=== PATIENT | female | born 2000 | race Caucasian/White ===

== ENCOUNTER 2024-12-25 08:33 | Outpatient (OUT) | payer OTHER, SELFPAY ==
[2024-12-25 09:11] LABS: Basophils Percent Auto 0.5 % (0.2-2.0); Eosinophils Absolute Auto 0.1 10^3/uL (0.0-0.7); Eosinophils Percent Auto 0.8 % (0.9-7.0); Hematocrit 35.3 % (36.0-48.0); Hemoglobin 11.4 g/dL (12.0-16.0); Immature Granulocytes Abs Auto 0.03 10^3/uL (0.00-0.03); Immature Granulocytes Pct Auto 0.4 % (0.0-0.5); Lymphocytes Absolute Auto 1.6 10^3/uL (1.2-3.8); Lymphocytes Percent Auto 21.5 % (20.5-60.0); Mean Corpuscular HGB Conc 32.3 g/dL (29.9-35.2); Mean Corpuscular Hemoglobin 27.4 pg (26.7-34.0); Mean Corpuscular Volume 84.9 fL (81.0-99.0); Mean Platelet Volume 9.8 fL (9.5-13.5); Monocytes Absolute Auto 0.6 10^3/uL (0.3-0.8); Monocytes Percent Auto 8.1 % (1.7-12.0); Neutrophils Absolute Auto 5.2 10^3/uL (1.4-6.5); Neutrophils Percent Auto 68.7 % (43.0-75.0); Platelet Count 352 10^3/uL (150-450); Red Blood Count 4.16 10^6/uL (4.20-5.40); Red Cell Distribution Width 14.2 % (11.0-15.0); White Blood Count 7.6 10^3/uL (4.0-11.0)
[2024-12-25 09:43] LABS: Alanine Aminotransferase 10 U/L (14-59); Albumin Level 3.6 g/dL (3.4-5.0); Alkaline Phosphatase 76 U/L (46-116); Anion Gap 13.4; Aspartate Amino Transferase 14 U/L (15-37); BUN Creatinine Ratio 15.4; Bilirubin Total 0.2 mg/dL (0.2-1.0); Calcium 8.6 mg/dL (8.5-10.1); Carbon Dioxide 24.1 mmol/L (21.0-32.0); Chloride 110 mmol/L (98-107); Estimated GFR (African America >60 (>=60 mL/min/1.73m^2); Estimated GFR (Non-African Ame >60 (>=60 mL/min/1.73m^2); Globulin 3.6 g/dL; Glucose 71 mg/dL (74-106); Potassium 3.5 mmol/L (3.5-5.1); Sodium 144 mmol/L (136-145); Total Protein 7.2 g/dL (6.4-8.2)
== END 2024-12-25 08:34 | disposition home or self-care (01) ==
LOC: LAB 08:40
PROVIDERS: PCP Family Medicine
DX: G40.409 Other generalized epilepsy and epileptic syndromes, not intractable, without status epilepticus (principal)
CPT/HCPCS: 36415; 80053; 85025

== ENCOUNTER 2025-09-05 21:01 | Outpatient (REF) | payer OTHER, SELFPAY ==
--- OUTSIDE RECORDS SUMMARY | 2024-03-09 09:00 | XMS_ITS ---
Author Organization [facility] Servic es Address [address] [place] [address] Care Team Providers Care Primary Special Education Teacher Name Role Phone Gilberto Magallon Primary Care Provider [phone] Enma Owen [phone] REASON FOR VISIT est care Encounters Encounter Location Date Provider Diagnosis [address] [place] [address] 03/09/2024 Enma Owen Plan Of Treatment No Information Progress Notes * TANJA RUDDKERAAOB: 1 (25 yo F)Acc No.[id number]:03/09/2024 Progress Notes Patient: PATRICA NOLAN :?Enma Jessica CNPDOB:2000???Age:24 Y ???Sex:FemaleDate:03/09/2024hone:[phone]:[address] [facility]Pcp:Gilberto Magallon Subjective: * Chief Complaints: * E care Billing Information: * Procedure Codes: * Electronic signature of MARC Guerrero on 09/05/2025 at 09:08 PM ESTSign off status: Pending * Provider: Juan Carlos Jessica CNP Date: 0 03/09/2024 Generated for Printing/Faxing/eTransmitting on:?09/05/2025 09:08 PM EST
--- OUTSIDE RECORDS SUMMARY | 2024-03-13 11:00 | XMS_ITS ---
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 Name Role Phone Gilberto Magallon Primary Care Provider [phone] Enma Owen [phone] REASON FOR VISIT EST CARE Encounters Encounter Location Date Provider Diagnosis [address] [place] [address] 03/13/2024 Enma Owen Plan Of Treatment No Information Progress Notes * TANJA RUDDKEARAOB: 1 (25 yo F)Acc No.[id number]:03/13/2024 Progress Notes Patient: PATRICA NOLAN :?Enma Jessica CNPDOB:2000???Age:24 Y ???Sex:FemaleDate:03/13/2024hone:[phone]:[address] [facility]Pcp:Gilberto Magallon Subjective: * Chief Complaints: * E CARE Billing Information: * Procedure Codes: * Electronic signature of MARC Guerrero on 09/05/2025 at 09:08 PM ESTSign off status: Pending * Provider: Juan Carlos Jessica CNP Date: 0 03/13/2024 Generated for Printing/Faxing/eTransmitting on:?09/05/2025 09:08 PM EST
--- OUTSIDE RECORDS SUMMARY | 2025-09-05 10:00 | XMS_ITS | Encounter Summary ---
Author Organization [facility] Address [address] [place] [address] Care Team Providers Care Riveter Pneumatic Name Role Phone Unavailable Primary Care Provider Unavailabl e Reason for Visit * ReasonCommentsWell Women Visit Encounter Details DateTypeDepartmentCare Team (Latest Contact Info)Hwbpevdyerh43/10/2025 10:00 AM ESTProcedure Visit [facility] [place] [facility] [address] [address] Dawna Bullard NP [address] [place] [address] Well woman exam with routine gynecological exam; Encounter for initial prescription of contraceptive pills Social History Tobacco UseTypesPacks/DayYears UsedDateSmoking Tobacco: Never Assessed CommentsNoSex and Gender InformationValueDate RecordedSex Assigned at BirthNot on fileLegal OuuEvypfh50/15/2023 7:14 PM EDTGender IdentityNot on fileSexual OrientationNot on filedocumented as of this encounter Last Filed Vital Signs Vital SignReadingTime TakenCommentsBlood Nmurlncz657/6412 10:15 AM EST Pulse--Temperature--Respiratory Rate--Oxygen Saturation--Inhaled Oxygen Concentration--Bepqxo48.7 kg (164 lb 12 oz)09/05/2025 10:15 AM ESTHeight--Body Mass Index25.809 1:11 PM EDTdocumented in this encounter Progress Notes * Dawna Bullard NP - 09/05/2025 10:00 AM EST Reason for Appointment: Patient ID: Mikaela Mendoza is a 25 y.o. female who presents for Well Women Visit Patient presents today for Annual Exam. MEDICATIONS Current Outpatient Medications Medication Instructions Briviact 100 mg, 2 times daily ethosuximide (ZARONTIN) 500 mg, 2 times daily folic acid (FOLVITE) 1,000 mcg, 2 times daily norethindrone (MICRONOR) 0.35 mg, Oral, Daily, Take 1 tablet by mouth daily topiramate (TOPAMAX) 200 mg, 2 times daily Trokendi XR 100 mg, Daily ALLERGIES No Known Allergies PROBLEMS Active Ambulatory Problems Diagnosis Date Noted No Active Ambulatory Problems Resolved Ambulatory Problems Diagnosis Date Noted No Resolved Ambulatory Problems Past Medical History: Diagnosis Date Epilepsy (HCC) HISTORY PAST MEDICAL HISTORY SOCIAL HISTORY Past Medical History: Diagnosis Date Epilepsy (HCC) Social History Tobacco Use Smoking status: Not on file Smokeless tobacco: Not on file Substance Use Topics Alcohol use: Not on file Drug use: Not on file FAMILY HISTORY No family history on file. SURGICAL HISTORY History reviewed. No pertinent surgical history. REVIEW OF SYSTEMS Review of Systems: Review of Systems Constitutional: Negative. HENT: Negative. Eyes: Negative. Respiratory: Negative. Cardiovascular: Negative. Gastrointestinal: Negative. Genitourinary: Negative. Musculoskeletal: Negative. Skin: Negative. Neurological: Negative. All other systems reviewed and are negative. Hematological: Negative. Endocrine: Negative. Allergic/Immunologic: Negative. OBJECTIVE Objective: Physical Exam Constitutional: Appearance: Normal appearance. She is well-developed. Genitourinary: Vulva normal. No vaginal prolapse present. No vaginal atrophy present. Breasts: Breasts are soft. Right: Normal. Left: Normal. Cardiovascular: Rate and Rhythm: Normal rate and regular rhythm. Pulmonary: Effort: Pulmonary effort is normal. Breath sounds: Normal breath sounds. Abdominal: General: Bowel sounds are normal. There is no distension. Palpations: Abdomen is soft. Tenderness: There is no abdominal tenderness. There is no guarding or rebound. Musculoskeletal: General: No swelling. Normal range of motion. Right lower leg: No edema. Left lower leg: No edema. Neurological: Mental Status: She is alert and oriented to person, place, and time. Skin: General: Skin is warm and dry. Psychiatric: Mood and Affect: Mood normal. Behavior: Behavior normal. Vitals and nursing note reviewed. Exam conducted with a iron miner present. Vitals: Estimated body mass index is 25.8 kg/m?? as calculated from the following: Height as of 25: 5' 7 . Weight as of this encounter: 164 lb 12 oz. BP: 110/64 No LMP recorded. (Menstrual status: Oral Contraception). Assessment/Plan ICD-10-CM 1. Well woman exam with routine gynecological exam Z01.419 Assessment/Plan Annual Exam: Patient presents today for an annual exam. Patient states she is doing well and has no complaints. Pap was obtained without difficulty. No orders of the defined types were placed in this encounter. Follow Up: Patient is to return in one year for annual unless needed otherwise. Documented by Dawna Bullard NP on behalf of: Dawna Bullard NP documented in this encounter Plan of Treatment DateTypeDepartmentCare Team (Latest Contact Info)Ntjrvjhtnhd50/30/2026 10:00 AM ESTProcedure Visit [facility] [address] [place] [address] Dawna Bullard NP [address] [place] [address] NameTypePriorityAssociated DiagnosesOrder SchedulePap SmearPathology and CytologyRoutine Well woman exam with routine gynecological exam Ordered: 09/05/2025documented as of this encounter Visit Diagnoses Diagnosis Well woman exam with routine gynecological exam Routine gynecological examination Encounter for initial prescription of contraceptive pills documented in this encounter
--- OUTSIDE RECORDS SUMMARY | 2025-09-05 21:06 | XMS_ITS | CCD ---
Author Organization [facility] Care Team Providers Care Distribution Technician Name Role Phone HOUSE, DR HENDRICKS Primary Care Unavailable HAY, DR PENN Admitting Unavailable HAY, DR PENN Attending Unavailable HAY, DR PENN Consulting Unavailable MISC, DR VARGAS Admitting Unavailable MISC, DR VARGAS Attending Unavailable HOUSE, DR HENDRICKS Primary Care Unavailable MISC, DR VARGAS Consulting Unavailable Destiney, Annabel Unavailable Ernesto Gordon Attending Unavailable RENACS, GEORGES LE Referring Unavailable RENACS, GEORGES LE Attending Unavailable RENACS, GEORGES LE Referring Unavailable OMERO AMAYA Attending Unavailable SELF, SELF Referring Unavailable HOUSE, RUTHIE Primary Care Unavailable HOUSE, RUTHIE Primary Care Unavailable HOUSE, RUTHIE Referring Unavailable OMERO AMAYA A Attending Unavailable HOUSE, RUTHIE Primary Care Unavailable SANTIAOG AMAYAIL A Attending Unavailable SELF, SELF Referring Unavailable Serge STATION INSTALLATION SUPERVISOR, Rajwinder Godoy Unavailable [phone] DAWNA BULLARD Attending Unavailable Medications Current Medications MedicationDrug Class(es)DatesSig (Normalized)Sig (Original)brivaracetam 100 mg oral tablet (3 sources)take 1 tablet by mouth in the morningBriviact 100 MG tablet tablet Take 100 mg by mouth in the morning and 100 mg before bedtime. ActiveBriviact Activeethosuximide 250 mg oral capsule (3 sources)Anti-epileptic Agenttake 2 capsules by mouth in the morning ethosuximide (Zarontin) 250 MG capsule Take 500 mg by mouth in the morning and 500 mg before bedtime. ActiveZarontin Activefluticasone propionate 0.05 mg/actuat metered dose nasal spray (1 source)CorticosteroidStart: 64-21-4268rywg 2 spray(s) nasal route once daily Fluticasone Propionate 50 MCG/ACT 2 sprays Nasally Once a day for 14 day(s) Jun, Activefolic acid 1 mg oral tablet (3 sources)folic acid (Folvite) 1 MG tablet Take 1,000 mcg by mouth in the morning and 1,000 mcg before bedtime. ActiveFolic Acid Activenorethindrone 0.35 mg oral tablet (2 sources)Start: 06-06-2025 End: 36-17-9852cuzg 1 tablet by mouth once daily, then take 1 tablet by mouth once dailynorethindrone (Micronor) 0.35 MG tablet Indications: Encounter for initial prescription of contraceptive pills Take 1 tablet (0.35 mg) by mouth Daily for 28 days Take 1 tablet by mouth daily 28 tablet 11 06/06/2025 07/04/2025 Activetopiramate 200 mg oral tablet (5 sources)Start: 96-16-5278wysc 1 tablet by mouth in the morningtopiramate (Topamax) 200 MG tablet Take 200 mg by mouth in the morning and 200 mg before bedtime. 08/11/2024 Activetake 1 capsule by mouth once dailyTrokendi XR 100 MG capsule sustained-release 24 hr Take 100 mg by mouth Daily ActiveTopamax Active Problems Active Problems Problem ClassificationProblemDateDocumented DateEpisodic/ChronicContraceptive and procreative management (2 sources)Patient encounter status; Translations: [Encounter for initial prescription of contraceptive pills]07-52-7280EvisajyfEuvnjpdx; convulsions (7 sources)Epilepsy, unspecified, not intractable, without status epilepticus; Translations: [Other generalized epilepsy and epileptic syndromes, not intractable, without status epilepticus]Onset: 26-16-8697ZokxrkqHtfztbfy; convulsions (1 source)Unspecified convulsions; Translations: [Unspecified convulsions (HCC)] Onset: 83-15-2470AdpudeuuFosywdhf; including migraine (4 sources)Headache; including migraine; Translations: [HEADACHE UNSPECIFIED] Onset: 68-47-0895Nmakh aftercare (2 sources)Other half-way (current) drug therapy; Translations: [OTH [facility] CURRENT DRUG THERAPY]Onset: 68-87-2922IaaaprboLtuff nervous system disorders (1 source)Tremor, unspecified; Translations: [Tremor, unspecified]Onset: 81-06-8070PpzpeayoCajrs upper respiratory infections (2 sources)Acute upper respiratory infection, unspecified; Translations: [Acute sinusitis, unspecified]Onset: 37-52-9261SaxjerpsQrnpmzksx-related disorders (1 source)Nicotine dependence, other tobacco product, uncomplicated; Translations: [Nicotine dependence, other tobacco product, uncomplicated]Onset: 13-20-9857WcjrgybUgyuvfojttsy (2 sources)COUGH, UNSPECIFIED; Translations: [COUGH, UNSPECIFIED]Onset: 22-06-1790Hutbfukbljci (1 source)Seizure-prior Hx OfOnset: 36-96-1012Qdfcdsklgvos (1 source)siezureOnset: 02-08-2024 Past or Other Problems Problem ClassificationProblemDateDocumented DateEpisodic/ChronicUnclassified (1 source)COUGH, UNSPECIFIED; Translations: [COUGH, UNSPECIFIED]Onset: 12-23-2021 Results Test NameValueInterpretationReference RangeFacilityHCG ( test) Ql (U)on 40-45-4747Tltypdtgvsygbr and review of laboratory resultsNormalSaint [facility]ius Hospital Preg Test, UrNegativeNegativeNOMineral Area Regional Medical CenterNOAZ HealthcareBASIC METABOLIC PANEL on 91-05-1245Tvcnz gap [Moles/Vol]9 mmol/LNormal7-16[facility] Comment on above:Order Comment: KDIGO 2012 GFR CategoriesStage\X09\Description\X09\X09\X09\X09\eGFR (mL/min/1.73m2 )G1\X09\Normal or high\X09\X09\X09\X09\>=90G2\X09\Mildly decreased\X09\X09\X09\60-89G3a\X09\Mildly to moderately decreased\X09\45- 59G3b\X09\Moderately to severely decreased\X09\30-44G4\X09\Severely decreased\X09\X09\X09\15-29G5\X09\Kidney Failure\X09\X09\X09\X09\<15Release to patient->ImmediatePerformed By: #### LAB15, [id number] ####[facility] [place] [address] USACalcium [Mass/Vol]9.2 mg/dLNormal8.6-10.2KOhioHealth Grant Medical Center on above:Order Comment: KDIGO 2012 GFR CategoriesStage\X09\Description\X09\X09\X09\X09\eGFR (mL/min/1.73m2 )G1\X09\Normal or high\X09\X09\X09\X09\>=90G2\X09\Mildly decreased\X09\X09\X09\60-89G3a\X09\Mildly to moderately decreased\X09\45- 59G3b\X09\Moderately to severely decreased\X09\30-44G4\X09\Severely decreased\X09\X09\X09\15-29G5\X09\Kidney Failure\X09\X09\X09\X09\<15Release to patient->ImmediatePerformed By: #### LAB15, [id number] ####[facility] [place] [id number] USAChloride [Moles/Vol]112 mmol/AKxstkakk22-646Lakbpoiby Health NetworkComment on above:Order Comment: KDIGO 2012 GFR CategoriesStage\X09\Description\X09\X09\X09\X09\eGFR (mL/min/1.73m2)G1\X09\Normal or high\X09\X09\X09\X09\>=90G2\X09\Mildly decreased\X09\X09\X09\60-89G3a\X09\Mildly to moderately decreased\X09\45- 59G3b\X09\Moderately to severely decreased\X09\30-44G4\X09\Severely decreased\X09\X09\X09\15-29G5\X09\Kidney Failure\X09\X09\X09\X09\<15Release to patient->ImmediatePerformed By: #### LAB15, [id number] ####[facility] [place] [address] USACO2 [Moles/Vol]19 mmol/XQgbchfqi22-61DlazcsfxbPaulding County HospitalComment on above:Order Comment: KDIGO 2012 GFR CategoriesStage\X09\Description\X09\X09\X09\X09\eGFR (mL/min/1.73m2 )G1\X09\Normal or high\X09\X09\X09\X09\>=90G2\X09\Mildly decreased\X09\X09\X09\60-89G3a\X09\Mildly to moderately decreased\X09\45- 59G3b\X09\Moderately to severely decreased\X09\30-44G4\X09\Severely decreased\X09\X09\X09\15-29G5\X09\Kidney Failure\X09\X09\X09\X09\<15Release to patient->ImmediatePerformed By: #### LAB15, [id number] ####[id number] [place] [address] USACreatinine [Mass/Vol] 0.74 mg/dLNormal0.6-1.2KEast Liverpool City HospitalComment on above:Order Comment: KDIGO 2012 GFR CategoriesStage\X09\Description\X09\X09\X09\X09\eGFR (mL/min/1.73m2)G1\X09\Normal or high\X09\X09\X09\X09\>=90G2\X09\Mildly decreased\X09\X09\X09\60-89G3a\X09\Mildly to moderately decreased\X09\45- 59G3b\X09\Moderately to severely decreased\X09\30-44G4\X09\Severely decreased\X09\X09\X09\15-29G5\X09\Kidney Failure\X09\X09\X09\X09\<15Release to patient->ImmediatePerformed By: #### LAB15, [id number] ####[id number] [place] [address] USAGFR FEMALE>90Normal>90 [facility] HospitalComment on above:Order Comment: KDIGO 2012 GFR CategoriesStage\X09\Description\X09\X09\X09\X09\eGFR (mL/min/1.73m2 )G1\X09\Normal or high\X09\X09\X09\X09\>=90G2\X09\Mildly decreased\X09\X09\X09\60-89G3a\X09\Mildly to moderately decreased\X09\45- 59G3b\X09\Moderately to severely decreased\X09\30-44G4\X09\Severely decreased\X09\X09\X09\G5\X09\Kidney Failure\X09\X09\X09\X09\<15Release to patient->ImmediateResult Comment: Reported eGFR is based on the CKD-EPI 2020 equation that does not use a race coefficient.Performed By: #### LAB15, [id number] ####[facility] [place] [address] [place] Glucose [Mass/Vol]89 mg/sKAkgklz30-163BhykcqvkxPaulding County HospitalComment on above: Order Comment: KDIGO 2012 GFR CategoriesStage\X09\Description\X09\X09\X09\X09\eGFR (mL/min/1.73m2 )G1\X09\Normal or high\X09\X09\X09\X09\>=90G2\X09\Mildly decreased\X09\X09\X09\60-89G3a\X09\Mildly to moderately decreased\X09\45- 59G3b\X09\Moderately to severely decreased\X09\30-44G4\X09\Severely decreased\X09\X09\X09\G5\X09\Kidney Failure\X09\X09\X09\X09\<15Release to patient->ImmediatePerformed By: #### LAB15, [id number] ####[facility] [place] [address] USAPotassium [Moles/Vol] 4.0 mmol/LNormal3.5-5.1KEast Liverpool City HospitalComtrinity health [facility] on above:Order Comment: KDIGO 2012 GFR CategoriesStage\X09\Description\X09\X09\X09\X09\eGFR (mL/min/1.73m2)G1\X09\Normal or high\X09\X09\X09\X09\>=90G2\X09\Mildly decreased\X09\X09\X09\60-89G3a\X09\Mildly to moderately decreased\X09\45- 59G3b\X09\Moderately to severely decreased\X09\30-44G4\X09\Severely decreased\X09\X09\X09\15-29G5\X09\Kidney Failure\X09\X09\X09\X09\<15Release to patient->ImmediatePerformed By: #### LAB15, [id number] ####[facility] [place] [address] USASodium [Moles/Vol]140 mmol/AZywwvx876-786BpccuyagbPaulding County HospitalComment on above:Order Comment: KDIGO 2012 GFR CategoriesStage\X09\Description\X09\X09\X09\X09\eGFR (mL/min/1.73m2 )G1\X09\Normal or high\X09\X09\X09\X09\>=90G2\X09\Mildly decreased\X09\X09\X09\60-89G3a\X09\Mildly to moderately decreased\X09\45- 59G3b\X09\Moderately to severely decreased\X09\30-44G4\X09\Severely decreased\X09\X09\X09\15-29G5\X09\Kidney Failure\X09\X09\X09\X09\<15Release to patient->ImmediatePerformed By: #### LAB15, [id number] ####[facility] [place] [address] USAUrea nitrogen [Mass/Vol]13 mg/dLNormal7-25[facility] HospitalComment on above:Order Comment: KDIGO 2012 GFR CategoriesStage\X09\Description\X09\X09\X09\X09\eGFR (mL/min/1.73m2)G1\X09\Normal or high\X09\X09\X09\X09\>=90G2\X09\Mildly decreased\X09\X09\X09\60-89G3a\X09\Mildly to moderately decreased\X09\45- 59G3b\X09\Moderately to severely decreased\X09\30-44G4\X09\Severely decreased\X09\X09\X09\15-29G5\X09\Kidney Failure\X09\X09\X09\X09\<15Release to patient->ImmediatePerformed By: #### LAB15, [id number] ####[facility] [place] [address] USACBC W/DIFFon 02-08-2024 BASOPHILS ABS AUTO0.0 K/uLNormal0.0-0.1KEast Liverpool City HospitalComment on above: Order Comment: Release to patient->ImmediatePerformed By: #### [id number] #### [facility] [address] [place] [address] USABasophils/100 WBC (Bld)0.3 %[facility] HospitalComment on above:Order Comment: Release to patient->ImmediatePerformed By: #### [id number] #### [facility] [address] [place] [address] USAEosinophils (Bld) [#/Vol]0.1 10*3/uLNormal0.0-0.4 [facility] HospitalComtr[facility] on above:Order Comment: Release to patient->ImmediatePerformed By: #### [id number] #### [facility] [address] [place] [address] USAEosinophils/100 WBC (Bld)0.9 %[facility] HospitalComtr[facility] on above:Order Comment: Release to patient->ImmediatePerformed By: #### [id number] #### [facility] [address] [place] [address] USAErythrocyte distribution width (RBC) [Ratio]15.0 % Cjmpqg85.7-15.2KEast Liverpool City HospitalComtrinity health [facility] on above:Order Comment: Release to patient->ImmediatePerformed By: #### [id number] #### [facility] [address] [place] [id number] USAHematocrit (Bld) [Volume fraction]39.4 %Rnutqp83.8-46.5 [facility] So[facility] Medical Centerment on above:Order Comment: Release to patient->ImmediatePerformed By: #### [id number] #### [address] [address] USAHemoglobin (Bld) [Mass/Vol]12.8 g/rXPzqlcj80.1-15.8 [facility] on above:Order Comment: Release to patient->ImmediatePerformed By: #### [id number] #### [address] [address] USALymphocytes (Bld) [#/Vol]2.1 10*3/uLNormal0.8-3.6 [facility] on above:Order Comment: Release to patient->ImmediatePerformed By: #### [id number] #### [place] [id number] USALymphocytes/100 WBC (Bld)27.3 %NormalPaulding County HospitalComtrinity health livonia on above:Order Comment: Release to patient->ImmediatePerformed By: #### [id number] #### [address] [address] USAMCH (RBC) [Entitic mass]28.3 ycHysbalqr42.4-33.4 [facility] on above:Order Comment: Release to patient->ImmediatePerformed By: #### [id number] #### [address] [address] USAMCHC (RBC) [Mass/Vol]32.4 g/vIZkmuxt08.1-37.0[facility] HospitalComtr[facility] on above:Order Comment: Release to patient->Immediate Performed By: #### [id number] #### [address] [address] USAMCV (RBC) [Entitic vol]87.4 nQFrsrik71.0-99.0[facility] HospitalComtr[facility] on above:Order Comment: Release to patient->Immediate Performed By: #### [id number] #### [facility] [address] [place] [address] USAMonocytes (Bld) [#/Vol]0.7 10*3/uLNormal0.3-0.9 [facility] on above:Order Comment: Release to patient->ImmediatePerformed By: #### [id number] #### [facility] [address] [place] [address] USAMonocytes/100 WBC (Bld)9.0 %[facility] on above:Order Comment: Release to patient->ImmediatePerformed By: #### [id number] #### [address] [address] USANEUTROPHIL ABS AUTO4.9 K/uLNormal2.0-7.3KOhioHealth Grant Medical Center on above:Order Comment: Release to patient->Immediate Performed By: #### [id number] #### [address] [address] USANeutrophils/100 WBC (Bld)62.6 %[facility] on above:Order Comment: Release to patient->ImmediatePerformed By: #### [id number] #### [address] [address] USAPlatelets (Bld) [#/Vol]468 10*3/eAOstbfccw558-534 [facility] on above:Order Comment: Release to patient->ImmediatePerformed By: #### [id number] #### [address] [address] USARBC (Bld) [#/Vol]4.51 10*6/uLNormal3.86-5.17[facility] on above:Order Comment: Release to patient->Immediate Performed By: #### [id number] #### [address] [address] USAWBC (Bld) [#/Vol]7.8 10*3/uLNormal4.0-10.5[facility] HospitalComment on above:Order Comment: Release to patient->Immediate Performed By: #### [id number] #### [facility] [address] [place] [address] USAED Provider Noteson 25-30-3898DN Provider Notes Encounter Department: [facility] ED Provider Notes by Ernesto Gordon MD at 02/08/2024 7:44 PM Author: ENRRIQUE Kwokervice: Emergency MedicineAuthor Type: ED Physician Filed: 02/08/2024 11:20 PMDate of Service: 02/08/2024 7:44 PMStatus: Signed Passenger Attendant: Ernesto Gordon MD (ED Physician) I saw and evaluated the patient and have provided the substantive portion of the assessment, direction of care and disposition. I have discussed with the JEWELL [employer] and agree with the findings and plan. FINAL IMPRESSION(S) ICD-10-CM 1.Seizure (HCC) R56.9 DISPOSITION PLAN Patient was discharged from ED. DISCHARGE MEDICATION(S) / CHANGES TO HOME MEDICATIONS There are no discharge medications for this patient. CHIEF COMPLAINT Chief Complaint Patient presents with -Seizure-prior Hx Of TRIAGE NOTE TYSON ROGERS RN 02/08/2024 4:54 PM Signed Pt states 1 seizure today at 1200 hrs. 4 minute seizure with 11 minute post- ichtal phase afterward. Grand-mal description, full body jerking. Pt alert and oriented at triage, states has taken her medications today. HPI / RELEVANT STEPHEN Mendoza is a 24 y.o. female in bed [facility] 08/07 with past medical history of depression, epilepsy presents ED with seizure. Patient had seizure at approximately noon today. According to the staff, seizure lasted approximately 2.5 minutes with patient having diffuse generalized tonic-clonic movements. Patient then had approximately 10 minutes postictal period before coming to. Patient does have history of seizures and currently does take topiramate, Briviact, and ethosuximide and has been taking these medications. Patient states that she is currently at facility for concern for relapse of patient endorsing that she has not relapsed. Patient states that approximately 1 year ago was the last time she used any cocaine or heroin. 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 PEREZ PORTIONS OF PHYSICAL EXAM ED Triage Vitals [02/08/24 1706] BP117/76 Temp97.7 ?F (36.5 ?C) Pulse76 Resp18 HvA062 % Hnkzme856 lb 8 oz (62.4 kg) [place] Coma Scale Score15 BMI (Calculated)24.4 Physical Exam Vitals and nursing note reviewed. Constitutional: Appearance: Normal appearance. HENT: Head: Normocephalic and atraumatic. Nose: Nose normal. Mouth/Throat: Mouth: Mucous membranes are moist. Pharynx: Oropharynx is clear. Eyes: Extraocular Movements: Extraocular movements intact. Pupils: Pupils are equal, round, and reactive to light. Cardiovascular: Rate and Rhythm: Normal rate and regular rhythm. Pulses: Normal pulses. Heart sounds: Normal heart sounds. Pulmonary: Effort: Pulmonary effort is normal. No respiratory distress. Breath sounds: Normal breath sounds. No stridor. No wheezing, rhonchi or rales. Chest: Chest wall: No tenderness. Abdominal: General: Bowel sounds are normal. There is no distension. Palpations: Abdomen is soft. There is no mass. Tenderness: There is no abdominal tenderness. There is no right CVA tenderness, left CVA tenderness, guarding or rebound. Hernia: No hernia is present. Musculoskeletal: General: Normal range of motion. Cervical back: Normal range of motion and neck supple. Skin: General: Skin is warm. Capillary Refill: Capillary refill takes less than 2 seconds. Neurological: General: No focal deficit present. Mental Status: She is alert and oriented to person, place, and time. Mental status is at baseline. Cranial Nerves: No cranial nerve deficit. Sensory: No sensory deficit. Motor: No weakness. EKG Results for orders placed or performed during the hospital encounter of 02/08/24 EKG Standard 12 Lead ResultValueRef Range Heart Xoyp34zfd RR MOBUADOO785mc SD Kjsnmriw015pt QRSD Cvpcrjsa500cv QT Sodjbwvf573vy QTc Vufphdon694pa QRS Vvgb88qpz T Wave AxisInvaliddeg REPORT- NORMAL ECG - REPORTSinus rhythm Interpreting Phys Confirmed by: Ernesto Gordon) 08-Feb-2024 18:13:01 RADIOLOGY I have personally visualized the images and my interpretation is CT head demonstrating no acute intracranial normality. CT cervical spine obtained and demonstrated no acute cervical osseous abnormality. Chest x-ray demonstrating no acute cardiopulmonary abnormality The radiologist interpretation: Results for orders placed or performed during the hospital encounter of 02/08/24 CT-HEAD W/O CONTRAST Narrative PROCEDURE: CT-HEAD W/O CONTRAST, CT-SPINE CERVICAL WO CONTRAST DATE OF EXAM: 02/08/2024 6:04 PM DEMOGRAPHICS: 24 years old Female INDICATION: History: seizure. Number of Series/Images: 5. COMPARISON: No existing relevant imaging study corresponding to the same anatomical region is available. TECHNIQUE: Contiguous axial slices of the head were submitted without IV contrast. DOSE OPTIMIZATION: CT radiation dose optimiz (more content not included)... [facility] HospitalED Provider NotesEncounter Department: [facility] Provider Notes by JANE Paz at 02/08/2024 5:04 PM Author: JANE PazService: Emergency MedicineAuthor Type: Nurse Practitioner Filed: 02/08/2024 7:09 PMDate of Service: 02/08/2024 5:04 PMStatus: Signed Passenger Attendant: JANE Paz (Nurse Practitioner)Cosigner: Ernesto Gordon MD at 02/09/2024 2:58 AM FINAL IMPRESSION(S) ICD-10-CM 1.Seizure (HCC) R56.9 DISPOSITION PLAN Discharge home DISCHARGE MEDICATION(S) / CHANGES TO HOME MEDICATIONS New Prescriptions No medications on file CHIEF COMPLAINT Chief Complaint Patient presents with -Seizure-prior Hx Of TRIAGE NOTE: TYSON ROGERS RN 02/08/2024 4:54 PM Signed Pt states 1 seizure today at 1200 hrs. 4 minute seizure with 11 minute post- ichtal phase afterward. Grand-mal description, full body jerking. Pt alert and oriented at triage, states has taken her medications today. HPI Mikaela Mendoza is a 24 y.o. female in bed [facility] 08/07 who presents to the ED with complaints of witnessed seizure at her recovery center this afternoon. Patient is coming to the emergency department by her health aide. Health aide states that her staff witnessed patient just not acting right and was walking to group and collapsed to the ground. Elevated states patient did hit her head. Health aide states that her staff stated that patient had shaking throughout her entire body and was postictal for about 11 minutes after procedure. 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 Patient states she takes multiple seizure medications and has not missed any of her doses. Patient states her neurologist is at [facility]. Patient states she was diagnosed with seizures at the age of 14. Patient states she is unaware of when her last seizure was. There are no aggravating or alleviating factors. Patient NIH score is 0. Patient denies any numbness or tingling. Patient denies chest pain or shortness of breath. Patient denies any dizziness, headache, lightheadedness, blurred or double vision. Patient denies any focal deficits. Patient denies any abdominal pain or urinary complaints. Patient denies any nausea, vomiting or diarrhea. Patient denies any neck or back pain. Patient denies any cough or congestion. Patient denies any fever or chills. There is no open wounds. There is no obvious deformities. Patient denies any recent injury. Patient is alert and oriented x3 Additional history and source includes health aid PERTINENT REVIEW OF SYSTEMS Review of Systems Constitutional: Negative for chills, fatigue and fever. HENT: Negative for congestion, dental problem, ear discharge, ear pain, postnasal drip, rhinorrhea, sinus pressure, sinus pain and sore throat. Eyes: Negative for photophobia and visual disturbance. Respiratory: Negative for cough, chest tightness and shortness of breath. Cardiovascular: Negative for chest pain, palpitations and leg swelling. Gastrointestinal: Negative for abdominal pain, diarrhea, nausea and vomiting. Genitourinary: Negative for difficulty urinating, dysuria, flank pain, frequency and hematuria. Musculoskeletal: Negative for arthralgias, back pain, myalgias and neck pain. Skin: Negative. Neurological: Positive for seizures. Negative for dizziness, syncope, weakness, light-headedness, numbness and headaches. Hematological: Negative. Psychiatric/Behavioral: Negative. PAST MEDICAL HISTORY / FAMILY HISTORY Past Medical History: DiagnosisDate -Depression -Epilepsy (HCC) No family history on file. Above past medical conditions reviewed and verified by me. SOCIAL HISTORY Social History Socioeconomic History -Marital status:Single Tobacco Use -Smoking status:Never -Smokeless tobacco:Never Vaping Use -Vaping status:Every Day -Substances:Nicotine Above social elements reviewed and verified by me. SURGICAL HISTORY History reviewed. No pertinent surgical history. CURRENT MEDICATIONS No outpatient medications have been marked as taking for the 02/08/24 encounter (Hospital Encounter). ALLERGIES No Known Allergies PERTINENT PHYSICAL EXAM VITAL SIGNS: ED Triage Vitals [02/08/24 1706] BP117/76 Temp97.7 ?F (36.5 ?C) Pulse76 Resp18 OtJ124 % Qjnnvm153 lb 8 oz (62.4 kg) [place] Coma Scale Score15 BMI (Calculated)24.4 Physical Exam Vitals and nursing note reviewed. Constitutional: Appearance: Normal appearance. HENT: Head: Normocephalic and atraumatic. Jaw: There is normal jaw occlusion. Comments: No trismus, stridor or tripoding. Right Ear: Tympanic membrane, ear canal and external ear normal. Left Ear: Tympanic membrane, ear canal and external ear normal. Nose: Nose normal. Mouth/Throat: Lips: [place]. Mouth: Mucous membranes are moist. Pharynx: Orop (more content not included)...NormalPaulding County HospitalEK STANDARD 12 LEADon 86-86-4716ISW STANDARD 12 LEADHEART RATE= 63 bpm RR Interval= 948 ms P-R Interval= 132 ms QRSD Interval= 108 ms QT Interval= 394 ms QTcB= 405 ms QRS [place]= 61 deg T Wave [place]= Invalid deg Report= - NORMAL ECG - Report= Sinus rhythm INTERPRETING PHYS= Confirmed by: Ernesto Gordon) 08-Feb-2024 18:13:01Normal [facility] TROPONIN Ion 61-60-9419CO TROPONIN I<3Normal<12 [facility] HospitalComment on above:Order Comment: The Access high sensitivity troponin assay is not intended to be used in isolation; results should be interpreted in conjunction with other diagnostic tests and clinical information. Release to patient->ImmediatePerformed By: #### [id number] #### [facility] [address] [place] [address] USAMAGNESIUMon 42-36-7350Bbammatqx [Mass/Vol]2.1 mg/dL Normal1.6-2.4Paul[facility] HospitalComment on above:Order Comment: Release to patient->ImmediatePerformed By: #### [id number], [id number] ####[facility] [place] [address] USAURINE CULTURE, CONDITIONALon 93-03-7755NBXNDWGGJ, UANegativeNormalNegativePaulding County HospitalComment on above:Order Comment: Release to patient->ImmediatePerformed By: #### [id number], [id number] ####[facility] [place] [address] USABLOOD, UA2+ mg/dLAbnormalNegCleveland Clinic Mercy HospitalComment on above:Order Comment: Release to patient->ImmediatePerformed By: #### [id number], [id number] ####[facility] [place] [address] USAClarity (U)TurbidAbnormalClearKetteJames J. Peters VA Medical CenterComment on above:Order Comment: Release to patient->ImmediatePerformed By: #### [id number], [id number] ####[facility] [place] [address] USAColor (U)YellowNormalYellowPaulding County Hospital Comment on above:Order Comment: Release to patient->ImmediatePerformed By: #### [id number], [id number] ####[facility] [place] [address] USAGLUCOSE, UANegativeNormalNegativePaulding County HospitalComment on above:Order Comment: Release to patient->ImmediatePerformed By: #### [id number], [id number] ####[place] [id number] USAKETONES, UANegativeNormalNegativePaulding County HospitalComment on above:Order Comment: Release to patient->ImmediatePerformed By: #### [id number], [id number] ####[place] [address] USALEUKOCYTES, UANegativeNormalNegativePaulding County HospitalComment on above:Order Comment: Release to patient->ImmediatePerformed By: #### [id number], [id number] ####[place] [address] USANitrite Ql (U)NegativeNormalNegativePaulding County HospitalComment on above:Order Comment: Release to patient->ImmediatePerformed By: #### [id number], [id number] ####[place] [address] USApH (U)6.5 [pH]Normal5.0-8.0[facility] Comment on above:Order Comment: Release to patient->ImmediatePerformed By: #### [id number], [id number] ####[place] [address] USAProtein (U) [Mass/Vol]10 mg/dLAbnormalNegative [facility] HospitalComment on above:Order Comment: Release to patient->ImmediatePerformed By: #### [id number], [id number] ####[place] [address] USASPECIFIC GRAVITY, UA CATEGORY1.143Hofbwi1.010 - 1.025Paul[facility] County HospitalComment on above:Order Comment: Release to patient->ImmediatePerformed By: #### [id number], [id number] ####[place] [address] [place] UROBILINOGEN, UANormalNormalNormalKetteJames J. Peters VA Medical CenterComment on above:Order Comment: Release to patient->ImmediatePerformed By: #### [id number], [id number] ####[facility] [place] [id number] [facility] URINE CULTURE, CONDITIONAL, NOT PERFORMEDon 89-06-1631IREHY CULTURE, CONDITIONAL, NOT PERFORMEDURINE CULTURE NOT PERFORMED Conditions not met for Urine CultureNoCherrington HospitalComtrinity health [facility] on above:Order Comment: Release to patient->ImmediatePerformed By: #### [id number], [id number] #### [facility] [address] [place] [address] USAURINE PREGNANCYon 34-43-3150Hrmn HCG ( test) Ql (U)NegativeNormalNegCleveland Clinic Mercy HospitalComtrinity health [place] on above:Order Comment: Release to patient->ImmediateResult Comment: Comment: False negative results may occur with very dilute urine samples, indicatedby a low specific gravity and when the levels of hCG are below the sensitivity of the test. If is still suspected, send a plasma sample to laboratory for confirmation of a negative result, by plasma qualitative hCG.Performed By: #### [id number] #### [facility] [address] [place] [address] USAXR-CHEST PORTABLE Kathleen 32-23-1657WH-CHEST PORTABLE STATA result will not be generated for this exam. EXAMINATION: XR-CHEST PORTABLE STAT DATE OF EXAM: 02/08/2024 5:58 PM DEMOGRAPHICS: 24 years old Female INDICATION: seizure History: seizure. Number of Series/Images: 1. COMPARISON: The TECHNIQUE: Single AP portable chest radiograph was obtained. FINDINGS: The cardiomediastinal silhouette is within normal limits. The lungs and pleural spaces are clear. The osseous and soft tissue structures are without acute abnormality. IMPRESSION: IMPRESSION: 1. No evidence for acute disease This dictation was created with voice recognition software. While attempts have been made to review the dictation as it is transcribed, on occasion the spoken word can be misinterpreted by the technology leading to omissions or inappropriate words, phrases or sentences. Electronically Signed by: Chris Mancia MD, 02/08/2024 6:01 PMNMiddletown HospitalTOPIRAMATE, SERUMon 20-35-5520Fmnewtetgm, Serum4.7 ug/mLNormal 2.0-25.0[facility] on above:Result Comment: This test was developed and its performance characteristics determined by [employer] in [place]. It has not been cleared or approved by the Food and Drug Administration. Detection Limit = 1.0Performed By: #### TOPAMAX #### [facility] [address] [id number] Ino MontanaARONTINon 51-68-5116Ecqttztalacd (Zarontin), Serum95 ug/mLNormal 40-100[facility] on above:Result Comment: Detection Limit = 10 Performed By: #### ZARONT #### [facility] [address] [place] [address] Ino Gates Vital Signs Date TimeVital SignValuePerforming ScvdlfqggUtxbmxpz36-68-5102 13:11-0400Body zvsdym396.2 cmDawna Bullard STATION INSTALLATION SUPERVISOR Work Phone: [phone] [place], [place] [address]Llcndbwbdf73-71-2135 13:11-0400Body mass index (BMI) [Ratio]24.14 kg/j4NyppsjpjDawna Bullard STATION INSTALLATION SUPERVISOR Work Phone: [phone] [place], [place] [address]Apasqtfrph22-24-3472 13:11-0400Body flkyzi12.91 kgDawna Bullard STATION INSTALLATION SUPERVISOR Work Phone: [phone] [place], [place] [address]Cavmouyhhf34-24-6946 13:11-0400Diastolic blood eqtqktff67 mm[Hg]Dawna Bullard STATION INSTALLATION SUPERVISOR Work Phone: [phone] [place], [place] [address]Etnpkvroqe53-94-0798 13:11-0400Systolic blood ihfcmken922 mm[Hg]Dawna Bullard STATION INSTALLATION SUPERVISOR Work Phone: [facility] HospitalEuwsxvnnkt09-11-8675 13:05-0400Body eiebpn653.18 Mary Cabello Other [facility] Other 10-30-2022 13:05-0400Body mass index (BMI) [Ratio] 20.36 kg/z3KugaidAnnabel Cabello Other 690.127.7854noLentigen Other 10-30-2022 13:05-0400Body lnqhhsysziz48.2 [degF]Annabel Cabello Other [employer] Other 10-30-2022 13:05-0400Body .97 kgAnnabel Cabello Other [facility] Other 10-30-2022 13:05-0400Respiratory rate18 /minAnnabel Cabello Other [facility] Other 10-30-2022 13:05-8679YhD5% (BldA) [Mass fraction]99 % Annabel Cabello Other no[facility] Other Encounters Encounter DateEncounter TypeCare ProviderFacilityStart: 06-06-2025 End: 81-46-0414Sfzhcc Gisel Bullard STATION INSTALLATION SUPERVISOR Work Phone: noms [place] OBGYNStart: 06-06-2025 End: 49-89-1176Nbzsvn flowsIza Bullard STATION INSTALLATION SUPERVISOR Work Phone: [facility] [place] OBGYNStart: 06-06-2025 End: 55-86-0278Mvlrjq outpatient visit 15 minutesDawna Bullard STATION INSTALLATION SUPERVISOR Work Phone: noMS Amrita OBGYNComment on above:Encounter for initial prescription of contraceptive pillsStart: 06-06-2025 End: 94-16-0469eogzbgzmprDVVWUTKH EBERLYNot AvailableStart: 15-48-5313tmorgsafga OMERO AMAYAFacility:[facility]ENTERtart: 59-84-6871tnsclaekciGZHWNTU HOUSEFacility:[facility]ENTERtart: 82-92-0500ugfercbjenMWJEVZD HOUSE Facility:[facility]tart: 02-08-2024 End: 68-87-8845Wjpglelix department patient visitMiilia [facility] Hospitaltart: 07-26-2022 End: 56-67-8629qvlehzqjcpPnpgao Dymond Other [facility] Other Start: 28-04-3164Vzsrrb outpatient new 20 minutes Annabel MontalvomichelleFPG Urgent Care ClydeStart: 12-23-2021 End: 70-91-0591dhiaiygckaNO RUTHIE HOUSEFacility:Q7Msccm: 01-02-2021 End: 64-32-6879enrfcitqsuFT DOCTOR MISCFacility:H1 Procedures DateProcedureProcedure DetailPerforming ClinicianStart: 79-79-2239Lxuet test visual color bevrsyash Bullard STATION INSTALLATION SUPERVISOR Work Phone: Plan of Treatment DateCare ActivityDetailAuthorStart: 09-05-2025 End: 61-49-1255Keiuibv encounter jgkpohbvh21/10/2025 10:00 AM EST Procedure Visit NOMJuan Carlos JAMIL [address], [id number] Dawna Bullard, ABDULAZIZ [address] [place] [address] NOMJuan Carlos HERNANDEZGYNStart: 06-06-2025 End: 31-22-6838Xhlhnmp encounter kjlqearjh62/10/2025 1:10 PM EDT Office Visit JEMAL JAMIL [address] [place] [phone] Dawna Bullard, STATION INSTALLATION SUPERVISOR [address] [place] [address] Chelsea JAMIL Comment on above:ArrivedStart: 41-18-6775Okdebltnw vaccinationInfluenza Vaccine (#1)[facility] Payers DatePayer CategoryPayerPolicy [id number] [facility] MEDICAID [id number] 2.0.1.795807.3.57[id number] 2.0.1.589296.3.57[id number] 2.840.1.409902.3.57[id number] 2.0.1.085507.3.57[id number] 2.840.1.207293.3.57[id number] 2.0.1.500979.3.57[id number] 2.16840.1.721233.3.57[id number] 2.0.1.966269.3.57[id number] 2.840.1.144458.3.57[id number] 2.840.1.731043.3.57[id number] Social History DateTypeDetailFacilitySex Assigned At [facility] Other Tobacco smoking status NHISTobacco smoking consumption unknownFILLMORE COMMUNITY [facility] HealthcareStart: 99-93-0041Wbh assigned at birthNot on fileFILLMORE COMMUNITY MEDICAL CENTER Healthcare History of Present illness Narrative 06-06-2025 Note Date & TzidBgzwGpvpslnl56-97-9007 History of Present illness Narrative* Dawna Bullard, STATION INSTALLATION SUPERVISOR - 06/06/2025 1:10 PM EDT Reason for Appointment: Patient ID: Mikaela Mendoza is a 25 y.o. female who presents for Contraception Patient presents today for Consult appointment. MEDICATIONS Current Outpatient Medications Medication Instructions Briviact 100 mg, 2 times daily ethosuximide (ZARONTIN) 500 mg, 2 times daily folic acid (FOLVITE) 1,000 mcg, 2 times daily topiramate (TOPAMAX) 200 mg, 2 times [...] Constitutional: Appearance: Normal appearance. She is well-developed. Cardiovascular: Rate and Rhythm: Normal rate and [...] nursing note reviewed. Exam conducted with a cosmetic manager present. Vitals: Estimated body mass index is 24.14 kg/m as calculated from the following: Height as of this encounter: 5' 7 . Weight as of this encounter: 154 lb 1.9 oz. BP: 120/70 Patient's last menstrual period was 05/26/2025. ASSESSMENT & PLAN ICD-10-CM 1. Encounter for initial prescription of contraceptive pills Z30.011 POCT , urine manuallyresulted Patient reports seizures since age 15 and concern by her neurologist that her seizure activity might be increased related to her menstrual cycle and hormone regulation. We discussed options for hormone regulation and will start her on Micronor. She is with her mother today as well . I discussed with them that this cannot be her primary contraception as Topamax at doses greater than 200 mg will decrease the effectiveness of the OCP. Documented by Dawna Bullard NP on behalf of: Dawna Bullard NP documented in this encounterSaint [facility] Clinical Note 02-08-2024 Note Date & CssbVfkaWlvuplth02-53-8224 NoteA result will not be generated for this exam. PROCEDURE: CT-HEAD W/O CONTRAST, CT-SPINE CERVICAL WO CONTRAST DATE OF EXAM: 02/08/2024 6:04 PM DEMOGRAPHICS: 24 years old Female INDICATION: History: seizure. Number of Series/Images: 5. COMPARISON: No existing relevant imaging study corresponding to the same anatomical region is available. TECHNIQUE: Contiguous axial slices of the head were submitted without IV contrast. DOSE OPTIMIZATION: CT radiation dose optimization techniques (automated exposure control, and use of iterative reconstruction techniques, or adjustment of the mA and/or kV according to patient size) were used to limit patient radiation dose. FINDINGS: CT head: Paranasal Sinuses/Mastoid Air cells: No fluid levels Orbits: No acute orbital abnormality. Brain: Ventricles are normal in caliber. Sulci are prominent for the patient's age. No focal areas of abnormal density are noted in the parenchyma. There is no hemorrhage or extra-axial collection CT cervical spine Bones: Detail is limited due to artifact. There is loss of the normal lordotic curvature. There is no acute displaced fracture. Prevertebral soft tissue thickness is normal. Small cervical nodes are present bilaterally. There is no mass or hematoma Spinal canal: Canal detail is limited due to artifact. There is no large disc herniation. IMPRESSION: IMPRESSION: 1. No acute intracranial hemorrhage 2. No acute cervical spine fracture. This dictation was created with voice recognition software. While attempts have been made to review the dictation as it is transcribed, on occasion the spoken word can be misinterpreted by the technology leading to omissions or inappropriate words, phrases or sentences. Electronically Signed by: Chinedu Wilkins MD, 02/08/2024 6:11 PMPaulding [facility] Clinical Note 02-08-2024 Note Date & EixdVxdpSpljmzdy91-57-3315 NoteA result will not be generated for this exam. PROCEDURE: CT-HEAD W/O CONTRAST, CT-SPINE CERVICAL WO CONTRAST DATE OF EXAM: 02/08/2024 6:04 PM DEMOGRAPHICS: 24 years old Female INDICATION: History: seizure. Number of Series/Images: 5. COMPARISON: No existing relevant imaging study corresponding to the same anatomical region is available. TECHNIQUE: Contiguous axial slices of the head were submitted without IV contrast. DOSE OPTIMIZATION: CT radiation dose optimization techniques (automated exposure control, and use of iterative reconstruction techniques, or adjustment of the mA and/or kV according to patient size) were used to limit patient radiation dose. FINDINGS: CT head: Paranasal Sinuses/Mastoid Air cells: No fluid levels Orbits: No acute orbital abnormality. Brain: Ventricles are normal in caliber. Sulci are prominent for the patient's age. No focal areas of abnormal density are noted in the parenchyma. There is no hemorrhage or extra-axial collection CT cervical spine Bones: Detail is limited due to artifact. There is loss of the normal lordotic curvature. There is no acute displaced fracture. Prevertebral soft tissue thickness is normal. Small cervical nodes are present bilaterally. There is no mass or hematoma Spinal canal: Canal detail is limited due to artifact. There is no large disc herniation. IMPRESSION: IMPRESSION: 1. No acute intracranial hemorrhage 2. No acute cervical spine fracture. This dictation was created with voice recognition software. While attempts have been made to review the dictation as it is transcribed, on occasion the spoken word can be misinterpreted by the technology leading to omissions or inappropriate words, phrases or sentences. Electronically Signed by: Chinedu Wilkins MD, 02/08/2024 6:11 [facility]MPaulding [facility] Hospital Evaluation note 07-26-2022 Note Date & IabmUsyyPlmjseyt70-93-8315 Evaluation note* Encounter Date Diagnosis Assessment Notes Treatment Notes Treatment Clinical Notes Jun, Acute sinusitis, rec urrence not specified, unspecified location (ICD-10 - J01.90) Sinusitis home care material was printed Plenty of rest. Take Tylenol or Motrin as needed for aches pains and fevers. Consider taking Zyrtecor Claritin for your sneezing and congestion. Use the Flonase nasal spray as prescribed until your symptoms improve. Follow-up with your family physician if no improvement in 2 to 3 days. [facility] Other Clinical Note 11-24-2020 Note Date & GcxhSutbElgdlkmw67-73-6320 NotePatient Outreach (COVAMN) MIKAELA MENDOZA ([id number]) 2 F Date Time Provider Department 11/24/20 USHA SARAVIA During your visit today, we recorded the following information about you: Allergies As of Date: 11/24/2020 (No Known Allergies) Date Reviewed: 11/22/2018 Reviewed by: Blanquita Geronimo Ma - Fully Assessed Order(s):SARS-COVID VACCINE 1ST DOSE APPT [[id number]] Order #: [id number] FUTURE Prescriptions as of 11/24/2020 Sig: ETHOSUXIMIDE 250 MG CAPSULE Take 2 capsules by mouth twic* FOLIC ACID 1 MG TABLET Take 1 tablet by mouth twice * Problem List As Of Date 11/24/2020 Noted Resolved 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] 07/08/2016 12/01/2016 Prognathism [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] 07/08/2016 Epilepsy (HCC) [G40.909] 11/19/2016 12/01/2016 Generalized convulsive epilepsy (HCC) [G40.309] 12/01/2016 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/01/2016 Shoulder dislocation, recurrent, right [M24.411]06/15/2017 02/28/2018 Recurrent dislocation of shoulder [M24.419] 02/28/2018 Syncope and collapse [R55] 08/08/2018 Bradycardia [R00.1] 08/08/2018 Breakthrough seizure (HCC) [G40.919] 09/07/2018 09/08/2018 Encounter Status:Closed by EPIC, PRODUSER on 11/27/20[facility] Evaluation note Note Date & TypeNoteFacilityEvaluation note* Diagnosis Encounter for initial prescription of contraceptive pills documented in this encounter [facility] History general Narrative - Reported Note Date & TypeNoteFacilityHistory general Narrative - Reported* Type Description Date Medical History Epilepsy Surgical Historyumbilical hernia repair [facility] Other Summary Purpose Family History No Family History Records FoundNo Family History Records FoundNo Family History Records FoundNo Family History Records FoundNo Family History Records Found Advance Directives No Advanced Directives Records FoundNo Advanced Directives Records FoundNo Advanced Directives Records FoundNo Advanced Directives Records FoundNo Advanced Directives Records Found Additional Source Comments INFORMATION SOURCE (unrecogn ized section and content) DATE CREATED AUTHOR 10/25/2021 [facility] DATE CREATED AUTHOR AUTHOR'S ORGANIZ ATION 12/25/2021 [facility] DATE CREATED AUTHOR AUTHOR'S ORGANIZ ATION 02/14/2024 [facility] DATE CREATED AUTHOR AUTHOR'S ORGANIZ ATION 05/09/2025 [facility] DATE CREATED AUTHOR AUTHOR'S ORGANIZ ATION 06/08/2025 [facility] EPIC REASON FOR VISIT (unrecogniz ed section and content) ReasonCommentsContraception Care Teams (unrecognized sec tion and content) Team MemberRelationshipSpecialtyStart DateEnd Date Rajwinder Valentine NP [address] [place] [address] PCP - [facility]12/26/2510Team MemberRelationshipSpecialtyStart Date End Date Rajwinder Valentine NP [address] [place] [address] PCP - [place] [address] FOR RECORDS PERTAINING TO PATIENTS WHO ARE OR HAVE BEEN ENROLLED IN A CHEMICAL DEPENDENCY/SUBSTANCEABUSE PROGRAM, SOME INFORMATION MAY BE OMITTED. This clinical summary was aggregated from multiple sources. Caution should be exercised in using it in the provision of clinical care. This summary normalizes information from multiple sources, and as a consequence, information in this document may materially change the coding, format and clinical context of patient data. In addition, data may be omitted in some cases. CLINICAL DECISIONS SHOULD BE BASED ON THE PRIMARY CLINICAL RECORDS. [facility] HospitalReGenX Biosciences [facility]. provides no warranty or guarantee of the accuracy or completeness of information in this document.
--- OUTSIDE RECORDS SUMMARY | 2025-09-05 21:08 | XMS_ITS | Clinical Summary ---
Author Organization [facility] Address [address] [place], [place] [address] Care Team Providers Care Senior Risk Analyst Name Role Phone House ., Amado CHAMBERS Primary Care Provider + Allergies No known active allergies Medications MedicationSigDispense QuantityRefillsLast FilledStart DateEnd DateStatus folic acid 1 mg tablet Take 1 tablet by mouth twice daily. 60 tablet Active ethosuximide (ZARONTIN) 250 mg capsule Indications:Generalized convulsive epilepsy (HCC),Generalized nonconvulsive epilepsy (HCC)Take 2 capsules by mouth twice daily. 120 capsule 11011/22/2018Active clonazePAM orally disintegrating (KLONOPIN WAFER) 0.5 mg disintegrating tablet Indications:Generalized epilepsy, intractable (HCC),Spells of decreased attentivenessTake 1 po as needed at onset of seizure activity. 30 tablet Active brivaracetam (BRIVIACT) 100 mg tablet Indications:Generalized convulsive epilepsy (HCC),Generalized nonconvulsive epilepsy (HCC)Take 2 tablets by mouth twice daily for 180 days. 360 tablet Active Active Problems ProblemNoted DateDiagnosed DateSyncope and /12/2018Bradycardia 08/08/2018Recurrent dislocation of rdevbmzr46/04/2018Generalized convulsive ahvdonlt83/07/2017Generalized nonconvulsive /07/2017Prognathism 07/08/2016 Resolved Problems ProblemNoted DateDiagnosed DateResolved DateBreakthrough bfsnjpl6609/07/2018 09/08/2018Shoulder dislocation, recurrent, right06/15/Epilepsy Localization-related dprarlfw32 Social History Tobacco UseTypesPacks/DayYears UsedDateSmoking Tobacco: NeverSmokeless Tobacco: NeverPHQ-2AnswerDate RecordedPHQ-2 uclhr532Area Deprivation IndexAnswer Date RecordedNational Score (1-100), lower number is lower riskNot on file 09/05/2020State Score (1-10), lower number is lower riskNot on file09/05/2020 Data from: https://www.neighborhoodatlas.medicine.[facility]/. Last address used for calculationNot on file09/05/2020CommentsNoSex and Gender Information ValueDate RecordedSex Assigned at BirthNot on fileLegal JqkKpjple12/07/2016 8:45 AM EDTGender IdentityNot on fileSexual OrientationNot on file Last Filed Vital Signs Vital SignReadingTime TakenCommentsBlood Tbsykvey498/62011/22/2018 12:58 PM EST Nxodu0380/26/2019 12:58 PM VAGPdunvtcqcqd08.6 ??C (97.8 ??F)09/08/2018 11:44 AM ESTRespiratory Jtpc707311/09/2017 11:44 AM ESTOxygen Chfthujxhx03%09/08/2018 11:44 AM ESTInhaled Oxygen Concentration--Qfnlta61.8 kg (167 lb)11/22/2018 12:58 PM CFPRyrffi299.6 cm (5' 6 )11/22/2018 12:58 PM ESTBody Mass Index26.95011/22/2018 12:58 PM EST Plan of Treatment Health MaintenanceDue DateLast DoneCommentsPeds To Adult Transition Initial Nhxvtidqgj65/28/2013Peds To Adult Transition Annual Iqqmlteoge91/28/2015HPV Vaccine (1 - 3-dose series)01/23/2016Anxiety Nugdisydg35/28/2019Depression Kpocujmnu62/28/2019HIV Cogqsqnzu45/28/2019Hepatitis C Eqlufqngx31/28/2019 DTaP,Tdap,Td Vaccine (1 - Tdap)01/23/2020Hepatitis B Vaccine (1 of 3 - 19+ 3- dose series)01/23/2020Cervical Cancer Sdzevkvfw52/28/2022Covid-19 Vaccine ( - season)2025Influenza Vaccine (#1)2025 Insurance Care Teams Team MemberRelationshipSpecialtyStart DateEnd Amado Goodrich Sr., PCP - GeneralFamily Utbzfzcb32/7/16
--- OUTSIDE RECORDS SUMMARY | 2025-09-05 21:09 | XMS_ITS | Clinical Summary ---
Author Organization [facility] Address [address] [place] [address] Care Team Providers Care Corporate Controller Name Role Phone Amado Vilchis DO Primary Care Provider [phone] Allergies No known active allergies Medications MedicationSigDispense QuantityRefillsLast FilledStart DateEnd DateStatus methylPREDNIsolone 4 MG Tab Therapy Pack tablet Indications:Nonintractable headache, unspecified chronicity pattern, unspecified headache typefollow package directions 21 tablet 1Active Additional Information Patient not taking.Reported on 05/04/2025 naproxen 500 MG tablet Indications:Other generalized epilepsy, not intractable, without status epilepticusTAKE ONE TABLET BY MOUTH TWICE A DAY NEEDED FOR SEVERE PAIN (WITH MEALS) 15 tablet 1Active Ethosuximide 250 MG capsule Indications:Other generalized epilepsy, not intractable, without status epilepticus,Juvenile absence epilepsyTAKE 2 CAPSULES BY MOUTH TWICE DAILY 120 capsule 5Active Folic acid 1 MG tablet Indications:Other generalized epilepsy, not intractable, without status epilepticus,Catamenial epilepsyTAKE 1 TABLET BY MOUTH TWICE DAILY 60 tablet 1105Active Topiramate ER 200 MG Cap SR 24HR Indications:Other generalized epilepsy, not intractable, without status epilepticus,Juvenile absence epilepsyTake 2 capsules by mouth at bedtime. Take with 100mg cap for total dose of 500mg daily at bedtime 60 capsule 5Active Brivaracetam (Briviact) 100 MG tablet Indications:Other generalized epilepsy, not intractable, without status epilepticus,Juvenile absence epilepsyTake 1 tablet by mouth 2 times daily. 60 tablet 50506Active Topiramate ER 100 MG Cap SR 24HR Indications:Other generalized epilepsy, not intractable, without status epilepticus,Juvenile absence epilepsyTake 1 capsule by mouth at bedtime. Take with 200mg cap for total dose of 500mg daily at bedtime 30 capsule 110/ctive Active Problems ProblemNoted DateDiagnosed DateSeizure qtrgucqw07/14/2019Spell of abnormal kjkmsese42/30/2019Other generalized epilepsy and epileptic syndromes, not intractable, without status laamlwbcypb58/30/6570Smiztmpjroh19/12/2018Syncope and evhalyah54/12/2018Recurrent dislocation of xncyilrw47/04/2018Generalized convulsive dtssswim21/07/1810Shzssnqbipr91/12/2016Juvenile absence epilepsy Encounters DateTypeDepartmentCare SnonEakowlgmoer79/21/2025Telephone Neurology [facility] [address] [phone] Jael Pal Reschedulefrom Last 3 Months Social History Tobacco UseTypesPacks/DayYears UsedDateSmoking Tobacco: NeverSmokeless Tobacco: NeverAlcohol UseStandard Drinks/WeekCommentsYes0 (1 standard drink = 0.6 oz pure alcohol)AUDIT-CAnswerDate RecordedFrequency of Alcohol ConsumptionNever 01/24/2019Average Number of DrinksNot on file01/24/2019Frequency of Binge DrinkingNot on file01/24/2019CommentsNoSex and Gender InformationValue Date RecordedSex Assigned at BirthNot on fileLegal QgsVpyieo44/23/2019 10:04 AM EDTGender IdentityNot on fileSexual OrientationNot on file Last Filed Vital Signs Vital SignReadingTime TakenCommentsBlood Ovfbbekk870/6809 1:06 PM EDT Womeu3594 1:06 PM QHVYcnnvyiaqkm17.4 ??C (97.5 ??F)06/12/2019 8:00 AM EDTRespiratory Pqyw023506/12/2019 8:00 AM EDTOxygen Jfeftqmzvh473%06/12/2019 8:00 AM EDTInhaled Oxygen Concentration--Fmwici79 kg (130 lb)05/04/2025 4:33 PM EDT Mnxwhp383.6 cm (5' 6 )05/04/2025 4:33 PM EDTBody Mass Index20.98005/04/2025 4:33 PM EDT Plan of Treatment Health MaintenanceDue DateLast DoneCommentsGONORRHEA AQQHSG15 2001HEPATITIS C VIRUS PRGQQCAET14/28/9982JMEALCA2001HIV SCREENING VLIYDZKTMW20/28/2016HPV VACCINE ADOL (1 - 3-dose series)01/23/2016HPV VACCINE (1 - 3-dose series) 01/23/2016CHLAMYDIA EJAADY3601/22/2017HEP B VACCINE (1 of 3 - 19+ 3-dose series) 01/23/2020TDAP (ADULT)01/23/2020CERVICAL CANCER SCREENING UGWZAPRZXR82/28/2022 COVID-19 VACCINE ( - 2024- season)2025INFLUENZA VACCINE (#1)2025 PNEUMOCOCCAL VACCINE SERIESAged OutNo longer eligible based on patient's age to complete this topic Insurance Advance Directives For more information, please contact: [phone] (7:30 AM - 6PM [facility], Wednesday-Wednesday) * Full Code (Latest Code Status on File) Date ActivatedDate InactivatedComments01/24/2019 11:13 AM Care Teams Team MemberRelationshipSpecialtyStart DateEnd Date Amado Vilchis DO PCP - GeneralFamily Medicine01/03/19
--- OUTSIDE RECORDS SUMMARY | 2025-09-05 21:09 | XMS_ITS | Clinical Summary ---
Author Organization [facility] Address [address] [place] [address] Care Team Providers Care Commutator Operator Name Role Phone Unavailable Primary Care Provider Unavailabl e Allergies No known active allergies Medications MedicationSigDispense QuantityRefillsLast FilledStart DateEnd DateStatus Briviact 100 MG tablet tablet Take 100 mg by mouth in the morning and 100 mg before bedtime.Active ethosuximide (Zarontin) 250 MG capsule Take 500 mg by mouth in the morning and 500 mg before bedtime.Active topiramate (Topamax) 200 MG tablet Take 200 mg by mouth in the morning and 200 mg before bedtime.08/11/2024ctive Trokendi XR 100 MG capsule sustained-release 24 hr Take 100 mg by mouth DailyActive folic acid (Folvite) 1 MG tablet Take 1,000 mcg by mouth in the morning and 1,000 mcg before bedtime.Active norethindrone (Micronor) 0.35 MG tablet Indications:Encounter for initial prescription of contraceptive pillsTake 1 tablet (0.35 mg) by mouth Daily Take 1 tablet by mouth daily 28 tablet ctive norethindrone (Micronor) 0.35 MG tablet Indications:Encounter for initial prescription of contraceptive pillsTake 1 tablet (0.35 mg) by mouth Daily for 28 days Take 1 tablet by mouth daily 28 tablet Discontinued(Reorder) Encounters DateTypeDepartmentCare KoncMvdcpviuhtf46/10/2025 10:00 AM ESTProcedure Visit [facility] [address] [place] [address] [place] [address] Dawna Bullard NP Well woman exam with routine gynecological exam; Encounter for initial prescription of contraceptive pills09/05/2025amb flowsheet [facility] [address] [facility] [facility] [address] Dawna Bullard NP 06/06/2025 1:10 PM EDTOffice Visit [facility] [address] [facility] [address] Dawna Bullard NP Encounter for initial prescription of contraceptive pills06/06/2025[facility] flowsheet [facility] [address] [facility] [place] [address] Dawna Bullard NP from Last 3 Months Social History Tobacco UseTypesPacks/DayYears UsedDateSmoking Tobacco: Never Assessed CommentsNoSex and Gender InformationValueDate RecordedSex Assigned at BirthNot on fileLegal WunRhizus48/15/2023 7:14 PM EDTGender IdentityNot on fileSexual OrientationNot on file Last Filed Vital Signs Vital SignReadingTime TakenCommentsBlood Lqcjlvub380/6409/05/2025 10:15 AM EST Pulse--Temperature--Respiratory Rate--Oxygen Saturation--Inhaled Oxygen Concentration--Vgpvrx14.7 kg (164 lb 12 oz)09/05/2025 10:15 AM MGIEdamey385.2 cm (5' 7 )06/06/2025 1:11 PM EDTBody Mass Index25.809 1:11 PM EDT Plan of Treatment DateTypeDepartmentCare Team (Latest Contact Info)Tmnhilztfxw12/30/2026 10:00 AM ESTProcedure Visit [facility] [address] [facility] [place] [address] Dawna Bullard NP [address] [place] [address] Health MaintenanceDue DateLast DoneCommentsCOVID-19 Vaccine (2024- season) 2025Influenza Vaccine (#1)2025Pneumococcal Vaccine: Pediatrics (0 to 5 Years) and At-Risk Patients (6 to 64 Years)Aged OutNo longer eligible based on patient's age to complete this topic Procedures Procedure NamePriorityDate/TimeAssociated DiagnosisCommentsPOCT , URINE Dxretiw9206/06/2025 1:22 PM EDT Encounter for initial prescription of contraceptive pills from Last 3 Months Results * POCT , urine manually resulted (06/06/2025 1:22 PM EDT)ComponentValue Ref RangeTest MethodAnalysis TimePerformed AtPathologist SignaturePreg Test, UrNegativeNegativeSpecimen (Source)Anatomical Location / LateralityCollection Method / VolumeCollection TimeReceived QaycKlasj27/10/2025 1:22 PM EDT Narrative Authorizing ProviderResult TypeResult StatusKristina Aleah NPPOINT OF CARE TEST ENTER/EDIT ORDERABLESFinal Result from Last 3 Months Insurance
--- OUTSIDE RECORDS SUMMARY | 2025-09-05 21:09 | XMS_ITS | Patient Health Record ---
Author Organization [facility] Address [address] [place] [address] Care Team Providers Care Office Services Associate Name Role Phone Sherita Gilberto Primary Care Provider Reason For Referral No Information Plan Of Treatment No Information Insurance Providers Payer Name Payer Address Payer Phone Subscriber Number Group Number Insured Name Patient Relationship to Insured Coverage Start Date Coverage End Date [employer] [place] [employer] [address] [place] [id number] TOBIN KATRINAanthony - patient is the [id number] 2024[address] [facility] [place] [id number], DELANEYSelf - patient is the [id number] 2024
--- OUTSIDE RECORDS SUMMARY | 2025-09-05 21:09 | XMS_ITS | Encounter Summary ---
Author Organization [facility] Address [address] [facility] [place] [address] Care Team Providers Care Detective Youth Bureau Name Role Phone Unavailable Primary Care Provider Unavailabl e Encounter Details DateTypeDepartmentCare Team (Latest Contact Info)Gkevswscjyv61/10/2025amboo flowsheet [facility] [address] [facility] [place] [address] Dawna Bullard, ABDULAZIZ [address] [place] [address] Social History Tobacco UseTypesPacks/DayYears UsedDateSmoking Tobacco: Never Assessed CommentsNoSex and Gender InformationValueDate RecordedSex Assigned at BirthNot on fileLegal RpqMpyyrj92/15/2023 7:14 PM EDTGender IdentityNot on fileSexual OrientationNot on filedocumented as of this encounter Plan of Treatment DateTypeDepartmentCare Team (Latest Contact Info)Ukrmywbasvi52/30/2026 10:00 AM ESTProcedure Visit [facility] [address] [place] [address] Dawna Bullard, ABDULAZIZ [address] [facility] [place] [address] documented as of this encounter Visit Diagnoses Not on filedocumented in this encounter
--- OUTSIDE RECORDS SUMMARY | 2025-09-05 21:09 | XMS_ITS | Clinical Summary ---
Author Organization [facility] Address [address], [address] [place] [address] Care Team Providers Care Power Shovel Engineer Name Role Phone Deng Ritchie Amado CHAMBERS Primary Care Provider + Allergies No known active allergies Medications No known medications Social History Tobacco UseTypesPacks/DayYears UsedDateSmoking Tobacco: NeverCommentsNo Sex and Gender InformationValueDate RecordedSex Assigned at BirthNot on file Legal AlkFztfgp34/10/2013 10:19 AM ESTGender IdentityNot on fileSexual OrientationNot on file Last Filed Vital Signs Vital SignReadingTime TakenCommentsBlood Uojgxctl398/801 10:14 AM EDT Dkyww211207/07/2015 10:14 AM TDOSbzmzknvild94.2 ??C (97.2 ??F)07/07/2015 10:14 AM EDTRespiratory Ygcn7453 10:14 AM EDTOxygen Rcclfylxvv91%07/07/2015 10:14 AM EDTInhaled Oxygen Concentration--Weight--Height--Body Mass Index-- Plan of Treatment Not on file Insurance * Guarantor: Italo YUSUF TypeRelation to PatientDate of BirthPhoneBilling AddressPersonal/Family [address] [place] [address] Care Teams Team MemberRelationshipSpecialtyStart DateEnd Amado Goodrich Sr., DO [address] [place] [address] PCP - Yklzrse36/11/15
[2025-09-07 20:08] LABS: Age Gdln ACOG Testing Note (.); IGP, rfx Aptima HPV ASCU Note (.)
== END 2025-09-05 21:02 | disposition home or self-care (01) ==
LOC: LAB 21:01
PROVIDERS: PCP Family Medicine; Visit Provider Nurse Practitioner Family
DX: Z01.419 Encounter for gynecological examination (general) (routine) without abnormal findings (principal)
CPT/HCPCS: 88175